=== PATIENT | female | born 1950 | race Caucasian/White ===

== ENCOUNTER 2017-04-04 06:19 | Day surgery (SDC) | payer OTHER, MEDICARE ==
[2017-03-27 18:07] VITALS: BMI 19.3
[2017-04-04] MEDS ORDERED: GENTAMICIN SULFATE 0.3% OPHTHALMIC (EYE DROPS) 5ML BOTTLE ONE (06:54)
[2017-04-04] MEDS ORDERED: FLURBIPROFEN 0.03% OPHTH SOLN 2.5 ML BOTTLE ONE (06:54)
[2017-04-04] MEDS ORDERED: CYCLOPENTOLATE HCL 1% OPHTH SOLN 2 ML BOTTLE ONE (06:54)
[2017-04-04] MEDS ORDERED: PHENYLEPHRINE 2.5% OPHTH SOLN 15 ML BOTTLE ONE (06:55)
[2017-04-04] MEDS: FLURBIPROFEN 0.03% OPHTH SOLN 2.5 ML BOTTLE OD SCH ×5 (07:05→07:25)
[2017-04-04] MEDS: PHENYLEPHRINE 2.5% OPHTH SOLN 15 ML BOTTLE OD SCH ×5 (07:05→07:25)
[2017-04-04] MEDS: GENTAMICIN SULFATE 0.3% OPHTHALMIC (EYE DROPS) 5ML BOTTLE OD SCH ×5 (07:05→07:25)
[2017-04-04] MEDS: TROPICAMIDE 1% OPHTH SOLN 15 ML BOTTLE ONE ×5 (07:05→07:25)
[2017-04-04] MEDS: CYCLOPENTOLATE HCL 1% OPHTH SOLN 2 ML BOTTLE OD SCH ×5 (07:05→07:25)
[2017-04-04] MEDS ORDERED: BETAXOLOL HCL 0.25% OPHTHALMIC 10 ML DROPSBTL ONE (07:27)
[2017-04-04] MEDS ORDERED: LIDOCAINE HCL/PF 2% SDV 5ML VIAL ONE ×2 (07:28→07:29)
[2017-04-04] MEDS ORDERED: BUPIVACAINE HCL/PF 0.5% (5MG/ML) 10 ML VIAL ONE (07:28)
[2017-04-04] MEDS ORDERED: LIDOCAINE HCL 2% JELLY 10 ML CARTRIDGE ONE (07:28)
[2017-04-04] MEDS ORDERED: POVIDONE-IODINE 5% OPHTHALMIC PREP 30 ML SOLUTION ONE (07:28)
[2017-04-04] MEDS ORDERED: ACETYLCHOLINE 1:100 INTRA-OCUL 20 MG/2 ML KIT ONE (07:29)
[2017-04-04] MEDS ORDERED: EPINEPHrine/PF 1 MG/1 ML (1:1,000) AMPULE ONE (07:34)
[2017-04-04] MEDS ORDERED: TROPICAMIDE 1% OPHTH SOLN 15 ML BOTTLE OD SCH (08:00)
[2017-04-04] MEDS ORDERED: MIDAZOLAM HCL 2 MG/2 ML SINGLE DOSE VIAL ONE ×2 (08:07→08:31)
[2017-04-04] MEDS ORDERED: PROPOFOL 20 ML ONE (08:11)
[2017-04-04 09:19] VITALS: TEMP 98.1
[2017-04-04] MEDS ORDERED: ACETAMINOPHEN 325 MG TABLET (FP) PO PRN (09:31)
[2017-04-04] MEDS ORDERED: ACETAMINOPHEN 325 MG TABLET (FP) ONE (09:47)
[2017-04-04 11:54] VITALS: BP 130/72; PULSE 76
--- NOTE | 2017-04-04 18:36 | OP ---
DATE OF OPERATION: 04/04/2017 PREOPERATIVE DIAGNOSIS: Cataract, right eye. POSTOPERATIVE DIAGNOSIS: Cataract, right eye. PROCEDURE: Cataract extraction via phacoemulsification with insertion of posterior chamber lens implant, right eye. PREOPERATIVE DIAGNOSIS: Cataract, right eye. POSTOPERATIVE DIAGNOSIS: Cataract, right eye. PROCEDURE: Cataract extraction via phacoemulsification with insertion of posterior chamber lens implant, right eye. SURGEON: Kenn Heck M.D. SENIOR APPLICATION SOFTWARE ENGINEER: Nimco Alvarez M.D. ANESTHESIA: Regional with sedation. COMPLICATIONS: None. ESTIMATED BLOOD LOSS: Less than 1 mL. SPECIMENS: None. PROCEDURE: The patient is identified in the holding area after all risks, benefits, and alternatives were explained to the patient, informed consent was obtained. The right eye was marked with a marking pen. The patient then entered the operating room on an eye stretcher. After formal timeout was performed, a 3 mL injection of equal parts 2% lidocaine with epinephrine and 0.5% Marcaine was given around the right eye. The right eye was then prepped and draped in the usual sterile fashion. Eyelid speculum was placed beneath the eyelids of the right eye. A supratemporal paracentesis incision was then created using 15 degree blade. Viscoelastic was injected into the anterior chamber, and a 2.4-mm keratome blade was then used to make an infratemporal incision. A 360-degree continuous curvilinear capsulorrhexis was then created using bent cystotome and Utrata forceps. Hydrodissection was then created using balanced saline solution on the cannula. Phacoemulsification was then introduced, disassembled and removed the nucleus in its entirety. Irrigation/aspiration was then used to remove any remaining cortical material from the eye. The capsular bag was then refilled using viscoelastic. An Rajendra model SN60WF 19.0 diopter power, serial number [id number] was inspected and found to be defect free and injected into the capsular bag. Irrigation/aspiration was then used to remove any remaining viscoelastic from the eye. Balanced saline solution was used to reform the anterior chamber. Intracameral injections of Miochol and Miostat were then given, and the pupil came down and was round. All wounds were hydrated with balanced saline solution and noted to be watertight. The lens was perfectly centered in the capsular bag. The eye had adequate pressure. The anterior chamber was deep, and there was a red reflex present. Then topical antibiotic eyedrops and ointment was then instilled to the right eye. The eyelid speculum was then removed from the right eye. The right eye was then patched and shielded. The patient tolerated the procedure well and left the operating room in stable condition to follow up in the eye clinic tomorrow morning at 9. KENN HECK M.D. SANTOS/[id number]
== END 2017-04-04 10:05 | disposition home or self-care (01) ==
LOC: FASU 06:19
PROVIDERS: ATTEND Ophthalmology
PROC: 08RJ3JZ Replacement of Right Lens with Synthetic Substitute, Percutaneous Approach (ICD-10-PCS; principal; 2017-04-04 08:32)
DX: H26.8 Other specified cataract (principal)

== ENCOUNTER 2020-11-10 08:24 | Day surgery (SDC) | payer OTHER, MEDICARE ==
[2020-11-03 12:37] VITALS: BMI 19.4
[2020-11-10] MEDS ORDERED: CYCLOPENTOLATE HCL 1% OPHTH SOLN 2 ML BOTTLE ONE (08:37)
[2020-11-10] MEDS ORDERED: TROPICAMIDE 1% OPHTH SOLN 15 ML BOTTLE ONE (08:38)
[2020-11-10] MEDS ORDERED: OFLOXACIN 0.3% OPHTHALMIC SOLUTION 5 ML BOTTLE ONE (08:38)
[2020-11-10] MEDS ORDERED: KETOROLAC TROMETHAMINE 0.5% EYE DROP 1 DROP DROPS ONE (08:38)
[2020-11-10] MEDS: CYCLOPENTOLATE HCL 1% OPHTH SOLN 2 ML BOTTLE OS SCH ×5 (08:55→09:15)
[2020-11-10] MEDS: PHENYLEPHRINE 2.5% OPHTH SOLN 15 ML BOTTLE OS SCH ×5 (08:55→09:15)
[2020-11-10] MEDS: TROPICAMIDE 1% OPHTH SOLN 15 ML BOTTLE OS SCH ×5 (08:55→09:15)
[2020-11-10] MEDS: KETOROLAC TROMETHAMINE 0.5% EYE DROP 1 DROP DROPS OS SCH ×5 (08:55→09:15)
[2020-11-10] MEDS: OFLOXACIN 0.3% OPHTHALMIC SOLUTION 5 ML BOTTLE OS SCH ×5 (08:55→09:15)
[2020-11-10 09:03] VITALS: TEMP 98.1
[2020-11-10] MEDS ORDERED: BETAXOLOL HCL 0.25% OPHTHALMIC 10 ML DROPSBTL ONE (09:54)
[2020-11-10] MEDS ORDERED: TETRACAINE 0.5% OPHTH SOLN 2 ML BOTTLE ONE (09:54)
[2020-11-10] MEDS ORDERED: EPI-SHUGARCAINE (EPINEPHRINE 0.025% & LIDOCAINE-PF 0.75%) 4ML ONE (09:54)
[2020-11-10] MEDS ORDERED: BACITRACIN/POLYMYXIN OPH OINT 3.5 GM TUBE ONE (09:54)
[2020-11-10] MEDS ORDERED: POVIDONE-IODINE 5% OPHTHALMIC PREP 30 ML SOLUTION ONE (09:55)
[2020-11-10] MEDS ORDERED: NEO/POLYMYX B SULF/DEXAMETH OPHTHALMIC 5ML BOTTLE ONE (09:55)
[2020-11-10] MEDS ORDERED: BSS (NA/CA/MG/K) BALANCED SALT SOLUTION OPHTH SOLN 15 ML BOTTLE ONE (10:16)
[2020-11-10] MEDS ORDERED: MIDAZOLAM HCL 2 MG/2 ML SINGLE DOSE VIAL ONE ×2 (10:21→10:37)
[2020-11-10] MEDS ORDERED: ONDANSETRON 4 MG/2 ML VIAL ONE (10:25)
[2020-11-10] MEDS ORDERED: ACETAMINOPHEN 325 MG TABLET (FP) PO PRN (10:59)
[2020-11-10 11:33] VITALS: BP 132/62; PULSE 65
== END 2020-11-10 11:45 | disposition home or self-care (01) ==
LOC: FASU 08:24
PROVIDERS: ATTEND Ophthalmology
PROC: 08RK3JZ Replacement of Left Lens with Synthetic Substitute, Percutaneous Approach (ICD-10-PCS; principal; 2020-11-10 10:35)
DX: H26.9 Unspecified cataract (principal)